=== PATIENT | female | born 2000 ===

== ENCOUNTER 2018-07-09 05:54 | Day surgery (SDC) ==
[2018-07-09 08:00] LABS: BHCG - Serum Negative (NEGATIVE); Pregs Control Background? CLEAR/WHITE (CLR/WHITE); Pregs Control Bar Appear? YES (CONTROL BAR)
[2018-07-09] MEDS ORDERED: Fentanyl 100 MCG/2 ML VIAL ONE ×2 (10:51→12:46)
[2018-07-09] MEDS ORDERED: Sodium Chloride 0.9% 100 ML ONE (11:02)
[2018-07-09] MEDS ORDERED: Piperacillin/Tazobactam 3.375 GM VIAL ONE (11:02)
[2018-07-09] MEDS ORDERED: Lidocaine 2% 11 ML SYR ONE (12:45)
[2018-07-09] MEDS ORDERED: Bupivacaine/Epinephrine 0.25% 30 ML VIAL ONE (12:48)
[2018-07-09] MEDS ORDERED: SUGAMMADEX SODIUM 200 MG/2 ML VIAL ONE (14:10)
[2018-07-09] MEDS ORDERED: Glycopyrrolate 0.2 MG/ML 5 ML SYRINGE ONE ×2 (15:16)
[2018-07-09] MEDS ORDERED: Ondansetron PF 4 MG/2 ML Vial ONE (15:16)
[2018-07-09] MEDS ORDERED: Ketorolac Tromethamine 30 MG/ML VIAL ONE (15:16)
[2018-07-09] MEDS ORDERED: Lidocaine 1% PF 5 ML VIAL ONE (15:16)
[2018-07-09] MEDS ORDERED: Rocuronium Bromide 10 MG/ML (10ML VIAL) ONE (15:16)
[2018-07-09] MEDS ORDERED: PROPOFOL 200 MG/20 ML VIAL ONE (15:16)
--- NOTE | 2018-07-10 08:50 | OP ---
DATE OF PROCEDURE: 07/09/2018 PREOPERATIVE DIAGNOSIS: Acute appendicitis. PROCEDURE PERFORMED: Laparoscopic appendectomy. INDICATIONS: A 17-year-old female with a 12-hour history of right lower quadrant pain. CT showing appendicitis. FINDINGS: Acute suppurative nonperforated appendicitis. DESCRIPTION OF PROCEDURE: After informed consent was obtained, the patient was taken to the operating room, given general endotracheal anesthesia, placed in the supine position. Abdomen was prepped and draped in usual fashion. Local anesthesia infiltrated subcutaneously and deep subumbilical incision was performed. Subcu divided sharply. The fascia was grasped with 2 stay sutures of 0 Vicryl placed in each side of midline. Midline incised, digital palpation revealed no local adhesions. A blunt 12 mm trocar inserted. Pneumoperitoneum was created to a pressure of 15 mmHg. Two under direct vision, two 5 mm ports were placed, 1 suprapubic and 1 right lateral abdomen. The appendix was found. The mesoappendix divided with ligature base. Appendix divided with a linear 45 mm white load stapler. Appendix placed in Endosac, removed from the abdomen in the endosac. Hemostasis assured. The abdomen irrigated, irrigation fluid removed. Trocars and retractors removed. The fascia closed with interrupted 0 Vicryl suture. The skin closed with interrupted 4-0 Rapide. Dermabond applied. The patient tolerated the procedure well transferred to Recovery in good condition. Sponge and needle count verified correct x2. Job ID: [id number]
== END 2018-07-09 16:30 | disposition home or self-care (01) ==
LOC: SDC/OP 05:54
PROVIDERS: ATTEND Surgery
PROC: 0DTJ4ZZ Resection of Appendix, Percutaneous Endoscopic Approach (ICD-10-PCS; principal; 2018-07-09)
DX: K35.80 Unspecified acute appendicitis (principal); I10 Essential (primary) hypertension; E66.9 Obesity, unspecified; Z79.899 Other long term (current) drug therapy
CPT/HCPCS: 36415; 84703; 88304; J1885; J2001; J2405; J2543; J2704; J3010; J7050